=== PATIENT | male | born 1965 | race Caucasian/White ===

== ENCOUNTER 2017-06-18 08:50 | Emergency (ER) | payer OTHER ==
[~2017-06-18] VITALS: Ht 185.4 cm; Wt 61.2 kg
[~2017-06-18 08:50] MED LIST: COMBIVENT RESPIM4 GM INH; DELTASONE20 MG PO; PREDNISONE10 M2 PO; PREDNISONE20 M1 PO; PROAIR HFA8.5 GM INH; PROVENTIL HFA6.7 GM INH; SPIRIVA RESPIMAT4 G1 INH; SYMBICORT 16010.2 GM INH; VENTOLIN HFA18 GM INH; ZITHROMAX250 M2 PO
--- NOTE | 2017-06-18 09:08 | ED DYSPNEA/ASTHMA COMPLAINT ---
History of Present Illness General Chief Complaint: Dyspnea (COPD, CHF, Other) Stated Complaint: SOB, X 1 DAY SAT 91% AT [facility] Source: patient, old records Exam Limitations: no limitations Vital Signs & Intake/Output Vital Signs & Intake/Output Vital Signs Date Time Temp Pulse Resp B/P B/P Pulse O2 O2 Flow FiO2 Mean Ox Delivery Rate 06/18 0959 97.0 94 20 169/90 93 Room Air 06/18 0855 97.9 104 18 117/86 89 Room Air Allergies Coded Allergies: No Known Allergies (03/26/17) Reconcile Medications Albuterol Sulfate (Proair Hfa) 90 MCG HFA.AER.AD 2 PUF INH Q4-6 PRN PRN wheezing Budesonide/Formoterol Fumarate (Symbicort 80-4.5 Mcg Inhaler) 80 MCG-4.5 MCG/ ACTUATION HFA.AER.AD 2 PUF INH BID wheezing Prednisone 10 MG TABLET 0 PO DAILY wheezing 6 tabs po day 1 5 tabs po day 2 4 tabs po day 3 3 tabs po day 4 2 tabs po day 5 1 tab po day 6-7 Triage Note: PT FROM HOME C/O SOB X1DAY. PT STATES YESTERDAY HE AWOKE WITH SOB, PT STATES "USUALLY THIS HAPPENS I COME HERE, GET A BREATHING TREATMENT SOME STEROIDS AND IM BETTER" PTS 02 89% IN TRIAGE ON RA. PT SPEAKING FULL SENTENCES, NO DISTRESS NOTED. OTHER VSS. Triage Nurses Notes Reviewed? yes Onset: Abrupt Duration: day(s): (1), constant Timing: recent history Severity: mild Activities at Onset: none Associated Symptoms: wheezing HPI: 51-year-old male with history of asthma COPD recently ran out of his Advair and albuterol presents to the ER for evaluation complaining exacerbation of his asthma in the past 1 day. He denies cough however reports wheezing. No chest pain no fever chills slight swelling of abdominal pain nausea vomiting diarrhea. He is a former smoker. Patient was seen here last month for the same and was prescribed prednisone which he states helped however after running out the symptoms came back. He has never required admission to the hospital for his asthma Past History Travel History Traveled to [place] past 21 day No Medical History Any Pertinent Medical History? see below for history Neurological: NONE EENT: NONE Cardiovascular: NONE Respiratory: COPD Gastrointestinal: NONE Hepatic: NONE Renal: NONE Musculoskeletal: SCOLOSIS Psychiatric: NONE Endocrine: NONE Blood Disorders: NONE Cancer(s): NONE WELDING INSPECTOR/Reproductive: NONE Surgical History Surgical History: unobtainable, non-contributory Psychosocial History What is your primary language [place]i Tobacco Use: Quit >30 days ago Family History Hx Contributory? No Review of Systems Review of Systems Constitutional: Reports: no symptoms, see HPI. Comments Review of systems: See HPI, All other systems negative. Constitutional, no chills no fever, HEENT: no sore throat no congestion Cardiovascular: No chest pain , Skin: no rashes, no change in skin Respiratory:SEE HPI GI: No nausea no vomiting, : No dysuria No hematuria, no frequency Muscle skeletal: No joint pain, Neurologic: , no headache Heme/endocrine: No bruising Physical Exam Physical Exam General Appearance: well developed/nourished, alert, awake Respiratory: wheezing Comments: Well-developed well-nourished person in no acute distress HEENT: Normal EENT exam; PERRL, EOMI, HEAD is atraumatic. moist mucous membranes. Neck: Supple, normal range of motion Back: Nontender, no CVA tenderness. Full range of motion Cardiovascular: Regular rate and rhythms no murmurs rubs or gallops, normal JVP Respiratory: Chest nontender.There were no bony deformities, no asymmetry. No respiratory distress. Patient speaking in full complete sentences. Wheezing no rhonchi no rales Extremity: No edema, full range of motion of extremities Neuro: Alert oriented x3, motor sensory normal. There were no obvious focal neurologic abnormalities. Skin: No appreciable rash on exposed skin, skin is warm and dry. Psych: Mood and affect is normal, memory and judgment is normal. Core Measures ACS in differential dx? No CVA/TIA Diagnosis No Sepsis Present: No Sepsis Focused Exam Completed? No Progress Differential Diagnosis: bronchitis, costochondritis, COPD, pneumonia, pneumothorax Plan of Care: Patient medicated with DuoNeb prednisone old records reviewed patient 94% after administration of breathing treatment-resting in no acute distress Patient ambulatory with myself 92% with ambulation, he denies shortness of breath, on repeat auscultation no wheezing I offered the patient is staying continue monitoring lab work repeat breathing treatments which he is declining he states he feels better I provided him for follow-up information with pulmonology we'll send him home with albuterol Symbicort and prednisone taper return precautions were discussed at length he feels comfortable plan Initial ED EKG: none Departure Departure Time of Disposition: 1003 Disposition: HOME OR SELF CARE Condition: Stable Clinical Impression Primary Impression: Asthma Referrals: Patient Has No Primary Care Dr (PCP/Family) Rich Mckeon MD Additional Instructions: Albuterol and Symbicort inhalers as directed. Prednisone taper as discussed follow-up with toxics program officer Dr. Mckeon, return to ER anytime sooner with any concerns. Departure Forms: Customer Survey General Discharge Information Prescriptions: Current Visit Scripts Albuterol Sulfate (Proair Hfa) 2 PUF INH Q4-6 PRN PRN wheezing #1 INHAL Budesonide/Formoterol Fumarate (Symbicort 80-4.5 Mcg Inhaler) 2 PUF INH BID #10.2 GM Prednisone 0 PO DAILY #22 TAB 6 tabs po day 1 5 tabs po day 2 4 tabs po day 3 3 tabs po day 4 2 tabs po day 5 1 tab po day 6-7 Critical Care Note Critical Care Note Critical Care Time: non-applicable
[2017-06-18 09:59] VITALS: BP 169/90
[2017-06-18] MEDS ORDERED: SYMBICORT 80-10.2 GM INH (10:05)
[2017-06-18] MEDS ORDERED: PREDNISONE10 M2 PO (10:05)
[2017-06-18] MEDS ORDERED: PROAIR HFA8.5 GM INH (10:05)
== END 2017-06-18 10:12 ==
LOC: ERH 08:50
DX: J45.909 Unspecified asthma, uncomplicated (principal); Z87.891 Personal history of nicotine dependence
CPT/HCPCS: 1263